=== PATIENT | male | born 1975 | race Caucasian/White ===

== ENCOUNTER 2022-11-04 13:44 | Outpatient (CLI) | payer BC, SELFPAY ==
--- NOTE | 2022-11-04 13:30 | RT.EKG_ITS ---
APPROVED REPORT Exam: Resting ECG Reason for Exam: Chest pain Patient Location: O HR:67 bpm ECG Measurements Heart Rate 67 AXIS NE 190 P -1 QRSd 96 QRS -35 QT 372 T 18 QTc 393 Conclusion Sinus rhythm...normal P axis, V-rate 50- [address] elev, probable normal early repol pattern...ST elevation, age<55 Baseline wander in lead(s) V1
== END 2022-11-04 13:45 | disposition home or self-care (01) ==
LOC: DI.KIM 13:45
PROVIDERS: Visit Provider Family Medicine
DX: R94.31 Abnormal electrocardiogram [ECG] [EKG] (principal); R07.9 Chest pain, unspecified
CPT/HCPCS: 93010

== ENCOUNTER 2022-11-11 02:37 | Outpatient (CLI) | payer BC, SELFPAY ==
[2022-11-11 10:10] LABS: Abs Immature Grans 0.02 10^3/uL (0.0-0.06); Absolute Basophil Count 0.03 10^3/uL (0.0-0.2); Absolute Eosinophil Count 0.17 10^3/uL (0.0-0.7); Absolute Lymphocyte Count 2.57 10^3/uL (1.2-3.4); Absolute Monocyte Count 0.57 10^3/uL (0.1-0.8); Absolute Neutrophil Count 2.47 10^3/uL (1.2-6.7); Basophils % 0.5; Eosinophils % 2.9; HCT 47.1 % (40.0-50.0); HGB 15.5 g/dL (13.5-17.5); Immature Grans % 0.3; Lymphocytes % 44.1; MCH 28.2 pg (27.0-33.0); MCHC 32.9 % (32.0-36.0); MCV 86 fL (80-95); MPV 10.5 fL (8.0-11.0); Monocytes % 9.8; Neutrophils % 42.4; Platelet Count 233 10^3/uL (130-400); RDW 12.8 % (11.8-14.1); RDW-SD 39.8 fL; WBC 5.83 10^3/uL (4.4-10.8)
[2022-11-11 11:19] LABS: ALT 42 U/L (16-63); AST 21 U/L (15-37); Albumin 4.4 g/dL (3.4-5.0); Alkaline Phosphatase 71 U/L (46-116); Anion Gap 7.3 mmol/L (3-11); BUN 11 mg/dL (7-18); Bilirubin, Total 0.6 mg/dL (0.2-1.0); CO2 29.7 mmol/L (21.0-32.0); Calcium 9.2 mg/dL (8.5-10.1); Calculated LDL 143 mg/dL (<100); Chloride 103 mmol/L (98-107); Cholesterol 221 mg/dL (<200); Estimated GFR 92.26 (mL/min/1.73m2); Glucose 107 mg/dL (74-106); HDL Cholesterol 43 mg/dL (40-60); Sodium 140 mmol/L (136-145); Triglyceride 175 mg/dL (<150)
== END 2022-11-11 02:38 | disposition home or self-care (01) ==
PROVIDERS: PCP Family Medicine; Visit Provider Family Medicine
DX: E78.5 Hyperlipidemia, unspecified (principal); R07.89 Other chest pain; Z85.72 Personal history of non-Hodgkin lymphomas
CPT/HCPCS: 36415; 80053; 80061; 85025

== ENCOUNTER 2022-11-26 00:25 | Outpatient (CLI) | payer BC, SELFPAY ==
--- NOTE | 2022-11-26 06:30 | ETT_ITS ---
APPROVED REPORT Exam: Exercise Treadmill Patient Location: Out-Patient Room/Bed: Stress Nurse: Lena Balderas RN Ordering Provider:PRACHI CAPUTO, Contact Number: [phone] BMI: 27.12 Baseline Rhythm: Sinus Rhythm Indications: Chest pain when lying down at night Medical History Medical History: HLD, Non hodgkins lymphoma Cardiac Medications: Rosuvastatin Allergies: NKA Cardiac Risk Factors: +HLD Previous Cardiac Procedures: None Pretest Chest Pain Characteristics: None Exercise History: Physically active Physical Disabilities: None Lung Sounds: Clear Heart Sounds: Regular Stress Test Details Test: Exercise stress testing was performed using a Rolly protocol. Rest Stress HR Resting HR Supine: 66 bpm Max Heart Rate (APMHR): 171 bpm Resting HR Standin bpm Target HR (85% APMHR): 145 bpm Max HR Achieved: 160 bpm % of APMHR: 94 Recovery HR: 84 bpm HR response to stress: Normal HR response to stress BP Resting BP Supine: 122/72 mmHg Resting BP Standin/76 mmHg Max BP: 160/74 mmHg Recovery BP: 128/78 mmHg BP response to stress: Normal blood pressure response to stress. ECG Resting ECG: Sinus Rhythm Ectopy: None Stress ECG: Sinus Tachycardia ST Change: No significant ST segment changes noted Arrhythmia: None Recovery ECG: Sinus Rhythm Recovery ST Change: No significant ST segment changes noted Recovery Arrhythmia: None Clinical Reason for Termination: Target HR Achieved, Artifact making it difficult to interpret 12 lead when pa tient was jogging Stress Symptoms: None Exercise duration: 10 min29 sec Highest Stage Reached: Stage 4: 4.2 mph at 16% grade. Exercise capacity: 12.60 METs Angina Score: None Fry Treadmill Score: 9.2 Rate Pressure Product: [id number] Stress ECG Conclusion 1. Resting electrocardiogram showed poor R wave progression 2. Patient exercised on the Rolly protocol and completed a workload of 12.6 METS 3. Normal heart rate and blood pressure response to exercise. The patient achieved 94% of predicted heart rate for age 4. There was no electrocardiographic evidence of myocardial ischemia 5. There were no significant dysrhythmias Fry Treadmill Score is 9.2 which is Low risk. Stress Test Summary STAGE Time (mins) Speed (mph) Grade (%) HR BP SpO2 SYMPTOMS METS Supine 66 122/72 Standing 74 118/76 1 3 1.7 10 107 128/70 4.5 2 6 2.5 12 121 142/68 7 3 9 3.4 14 135 150/62 10 4 12 4.2 16 156 13 1 min recovery 122 162/68 3 min recovery 88 160/74 6 min recovery 84 128/78 Patient presented to stress lab for exercise treadmill test today. Patient appeared very anxious prio r to test but was able to complete the test without any adverse signs or symptoms. Test was stopped b ecause there was a lot of artifact when patient started jogging during stage 4 and target heart rate was met.
== END 2022-11-26 00:45 ==
LOC: DI 00:26
PROVIDERS: PCP Family Medicine; Visit Provider Family Medicine
DX: R07.9 Chest pain, unspecified (principal)
CPT/HCPCS: 93017

== ENCOUNTER 2023-06-02 16:31 | Outpatient (CLI) | payer BC, SELFPAY ==
[2023-06-02 10:40] LABS: Abs Immature Grans 0.03 10^3/uL (0.0-0.06); Absolute Basophil Count 0.05 10^3/uL (0.0-0.2); Absolute Lymphocyte Count 3.16 10^3/uL (1.2-3.4); Absolute Monocyte Count 0.68 10^3/uL (0.1-0.8); Absolute Neutrophil Count 3.27 10^3/uL (1.2-6.7); Basophils % 0.7; Eosinophils % 6.5; HCT 46.7 % (40.0-50.0); HGB 15.7 g/dL (13.5-17.5); Immature Grans % 0.4; Lymphocytes % 41.1; MCH 28.6 pg (27.0-33.0); MCHC 33.6 % (32.0-36.0); MCV 85 fL (80-95); MPV 10.1 fL (8.0-11.0); Monocytes % 8.8; Neutrophils % 42.5; Platelet Count 220 10^3/uL (130-400); RBC 5.48 10^6/uL (4.36-5.78); RDW 13.1 % (11.8-14.1); RDW-SD 40.8 fL; WBC 7.69 10^3/uL (4.4-10.8)
[2023-06-02 11:21] LABS: Cholesterol 203 mg/dL (<200); HDL Cholesterol 34 mg/dL (40-60); Triglyceride 684 mg/dL (<150)
[2023-06-02 11:32] LABS: LDL CHOLESTEROL 65 mg/dL (<100)
[2023-06-02 11:41] LABS: Uric Acid 7.7 mg/dL (3.5-7.2)
[2023-06-02 17:34] LABS: CRP, High Sensitivity 0.64 mg/L (See Note)
[2023-06-03 12:46] LABS: Lyme Ab w Rflx to Lyme Confirm Negative (Negative)
[2023-06-04 23:05] LABS: Anaplasma phagocytophilum Negative (Negative); B. miyamotoi PCR Negative (Negative); Babesia divergens/MO-1 Negative (Negative); Babesia duncani Negative (Negative); Babesia microti Negative (Negative); Ehrlichia chaffeensis Negative (Negative); Ehrlichia ewingii/canis Negative (Negative); Ehrlichia muris eauclairensis Negative (Negative)
== END 2023-06-02 16:32 | disposition home or self-care (01) ==
LOC: LBO 16:31
PROVIDERS: PCP Family Medicine; Visit Provider Family Medicine
DX: M25.60 Stiffness of unspecified joint, not elsewhere classified (principal); E78.5 Hyperlipidemia, unspecified; M25.40 Effusion, unspecified joint; C85.90 Non-Hodgkin lymphoma, unspecified, unspecified site
CPT/HCPCS: 36415; 80061; 83721; 85652; 86141; 87798; 84550; 85025; 86618

== ENCOUNTER 2023-07-22 02:23 | Outpatient (CLI) | payer BC, SELFPAY ==
[2023-07-22 10:46] LABS: Abs Immature Grans 0.01 10^3/uL (0.0-0.06); Absolute Basophil Count 0.06 10^3/uL (0.0-0.2); Absolute Eosinophil Count 0.44 10^3/uL (0.0-0.7); Absolute Lymphocyte Count 3.14 10^3/uL (1.2-3.4); Absolute Neutrophil Count 2.34 10^3/uL (1.2-6.7); Basophils % 0.9; Eosinophils % 6.7; HCT 45.2 % (40.0-50.0); HGB 15.4 g/dL (13.5-17.5); Immature Grans % 0.2; Lymphocytes % 47.6; MCH 29.1 pg (27.0-33.0); MCHC 34.1 % (32.0-36.0); MCV 85 fL (80-95); MPV 10.8 fL (8.0-11.0); Monocytes % 9.1; Neutrophils % 35.5; Platelet Count 224 10^3/uL (130-400); RDW 13.1 % (11.8-14.1); RDW-SD 40.5 fL; WBC 6.59 10^3/uL (4.4-10.8)
[2023-07-22 10:57] LABS: Calculated LDL 65 mg/dL (<100); Cholesterol 177 mg/dL (<200); HDL Cholesterol 37 mg/dL (40-60); Triglyceride 378 mg/dL (<150)
[2023-07-22 11:39] LABS: LDH 184 U/L (85-227)
== END 2023-07-22 02:24 | disposition home or self-care (01) ==
LOC: LBO 02:23
PROVIDERS: PCP Family Medicine; Referring Provider Family Medicine; Visit Provider Family Medicine
DX: E78.5 Hyperlipidemia, unspecified (principal); Z85.72 Personal history of non-Hodgkin lymphomas
CPT/HCPCS: 36415; 80061; 83615; 85025

== ENCOUNTER → 2023-08-04 00:37 | Outpatient (CLI) | payer BC, SELFPAY ==
[2023-08-04 07:33] LABS: CREATININE 0.9 mg/dL (0.70-1.30); Estimated GFR 104.05 (mL/min/1.73m2)
[2023-08-04] MEDS: Normal Saline - Diluent 50 ML VIAL IJ (09:44)
[2023-08-04] MEDS: Omnipaque 350 MG/ML 500 ML BTL-Imaging package 100 ML IJ (09:45)
--- NOTE | 2023-08-04 09:45 | DI.CT_ITS ---
Exam(s) CT ABDOMEN PELVIS W EXAM: CT ABDOMEN PELVIS W CLINICAL HISTORY: Groin pain,night sweats,history of lymphoma,r10.32 TECHNIQUE: Imaging Protocol: Axial computed tomography images with coronal and sagittal reformatted images were created and reviewed CONTRAST MATERIAL: Intravenous: Omnipaque 350 Contrast volume:100 mL Oral: Yes COMPARISON: No exams were available for comparison FINDINGS: ABDOMEN: Lung Bases: There is a 4 mm nodule in the lateral aspect of the right lower lobe. (Series 5, image 1 ). There is a 3 mm peripheral nodule in the left lower lobe. (Series 5, image 25). Liver: Normal density. No measurable mass. Portal, Superior Mesenteric, and Splenic Veins: Unremarkable. Gallbladder and Biliary Tract: No radiodense calculus or dilation. Pancreas: Normal density, no abnormal calcifications or inflammatory process. Spleen: Normal. Adrenals: No masses seen. Kidneys: Normal size, contour and axis. No radiodense stones or obstructive uropathy. No masses seen. Abdominal Aorta: Abdominal portion non-dilated. Mild atherosclerosis. Bowel: No obstruction or bowel wall thickening. No evidence of appendicitis. Peritoneal Cavity: No ascites, collection or mesenteric inflammatory response. No free air. Lymph Nodes: Within normal limits. Bones: Within normal limits for the patient's age. There is a sclerotic focus seen in the right randee c bone measuring 1.8 cm. No cortical disruption or soft tissue mass is associated with the lesion. Soft Tissues: No evidence of an inguinal mass, adenopathy or hernia. PELVIS: Bladder: Symmetric distention, no gross wall thickening. Reproductive Organs: Mildly enlarged prostate gland. Lymph Nodes: Within normal limits. Bones: Within normal limits for the patient's age. IMPRESSION: 1. No evidence of an inguinal mass, adenopathy or hernia. 2. No evidence of nephrolithiasis or hydronephrosis. 3. Right iliac sclerotic focus measuring 1.8 cm. A bone scan should be considered for further evaluat ion. Depending on those results, an MRI may be considered. 4. Pulmonary nodules. In low risk patients, no follow-up is indicated. In high risk patients (history of smoking or other risk factors), a CT scan in 12 months may be warranted. (Agusto et al, 2017). Unexpected findings RADIATION DOSE DELIVERED: Total DLP DATA REPOSITORY: All CT scans at this facility are submitted to the National Radiology Data Registry (NRDR) Dose Index Registry (DIR) with the [employer] ([employer]). RADIATION OPTIMIZATION: All CT scans at this facility use at least one of these dose optimization te chniques: automated exposure control; mA and/or kV adjustment per patient size (includes targeted exa ms where dose is matched to clinical indication); or iterative reconstruction.
[2023-08-04] MEDS: Barium Sulfate 2% W/V-Berry Smoothie 450 ML BTL 900 ML PO (09:46)
== END ==
PROVIDERS: PCP Family Medicine; Visit Provider Family Medicine
DX: M10.9 Gout, unspecified (principal); R91.1 Solitary pulmonary nodule; R10.32 Left lower quadrant pain; M89.28 Other disorders of bone development and growth, other site
CPT/HCPCS: 74177; 82565

== ENCOUNTER → 2023-08-20 02:01 | Outpatient (CLI) | payer BC, SELFPAY ==
--- NOTE | 2023-08-20 07:30 | DI.NM_ITS ---
Exam(s) NM BONE SCAN WHOLE BODY GRP EXAM: NM BONE SCAN WHOLE BODY GRP CLINICAL HISTORY: h/o lymphoma,lesion rt pelvis,C85.90. TECHNIQUE: Injected Dose: 25 mCi Tc-99m MDP Delayed Images: 2-3 hours. COMPARISON: CT CT ABDOMEN PELVIS W from 08/04/2023 FINDINGS: Symmetric axial uptake. Bilateral renal excretion is identified. Thinly increased activity in the lower right ilium which may correspond to the lesion seen on CT. No additional abnormal foci in the skeletal. IMPRESSION: Mildly increased activity associated with the lesion in the inferomedial right ilium. If there are n o prior comparison CT examinations, MRI could be considered. DATA REPOSITORY:
== END ==
PROVIDERS: PCP Family Medicine; Visit Provider Family Medicine
DX: C85.90 Non-Hodgkin lymphoma, unspecified, unspecified site (principal); R93.7 Abnormal findings on diagnostic imaging of other parts of musculoskeletal system
CPT/HCPCS: 78306

== ENCOUNTER 2023-12-12 12:33 | Outpatient (CLI) | payer BC, SELFPAY ==
[2023-12-12 11:42] LABS: ESR 3 mm/hr (0-15)
[2023-12-12 11:59] LABS: C-Reactive Protein < 0.50 mg/dL (<or=0.5)
== END 2023-12-12 12:34 | disposition home or self-care (01) ==
PROVIDERS: PCP Family Medicine; Visit Provider Family Medicine
DX: M25.69 Stiffness of other specified joint, not elsewhere classified (principal)
CPT/HCPCS: 36415; 85652; 86140

== ENCOUNTER 2024-03-15 13:29 | Outpatient (CLI) | payer BC, SELFPAY ==
[2024-03-15 13:02] LABS: Abs Immature Grans 0.03 10^3/uL (0.0-0.06); Absolute Basophil Count 0.04 10^3/uL (0.0-0.2); Absolute Eosinophil Count 0.38 10^3/uL (0.0-0.7); Absolute Lymphocyte Count 2.72 10^3/uL (1.2-3.4); Absolute Monocyte Count 0.61 10^3/uL (0.1-0.8); Absolute Neutrophil Count 4.24 10^3/uL (1.2-6.7); Basophils % 0.5 %; ESR 9 mm/hr (0-15); Eosinophils % 4.7 %; HCT 46.1 % (40.0-50.0); HGB 15.9 g/dL (13.5-17.5); Immature Grans % 0.4 %; Lymphocytes % 33.9 %; MCH 28.8 pg (27.0-33.0); MCHC 34.5 % (32.0-36.0); MCV 83 fL (80-95); MPV 10.3 fL (8.0-11.0); Monocytes % 7.6 %; Neutrophils % 52.9 %; Platelet Count 241 10^3/uL (130-400); RBC 5.53 10^6/uL (4.36-5.78); RDW 13.1 % (11.8-14.1); RDW-SD 39.8 fL; WBC 8.02 10^3/uL (4.4-10.8)
[2024-03-15 13:58] LABS: Cholesterol 231 mg/dL (<200); HDL Cholesterol 38 mg/dL (40-60); Triglyceride 731 mg/dL (<150)
[2024-03-15 14:10] LABS: LDL CHOLESTEROL 74 mg/dL (<100)
[2024-03-15 14:24] LABS: C-Reactive Protein < 0.50 mg/dL (<or=0.5)
== END 2024-03-15 13:30 | disposition home or self-care (01) ==
LOC: LBO 13:29
PROVIDERS: PCP Family Medicine; Visit Provider Family Medicine
DX: E78.5 Hyperlipidemia, unspecified (principal); H57.10 Ocular pain, unspecified eye
CPT/HCPCS: 36415; 80061; 83721; 85652; 85025; 86140

== ENCOUNTER 2024-05-27 03:06 | Outpatient (CLI) | payer BC, SELFPAY ==
[2024-05-27 12:10] LABS: ALT 42 U/L (16-63); AST < 5 U/L (15-37); Alkaline Phosphatase 66 U/L (46-116); Anion Gap 7.7 mmol/L (3-11); BUN 13 mg/dL (7-18); Bilirubin, Total 0.56 mg/dL (0.2-1.0); CO2 29.3 mmol/L (21.0-32.0); CREATININE 1.1 mg/dL (0.70-1.30); Calcium 8.8 mg/dL (8.5-10.1); Chloride 104 mmol/L (98-107); Estimated GFR 81.28 (mL/min/1.73m2); Glucose 103 mg/dL (74-106); Potassium 4.3 mmol/L (3.5-5.1); Sodium 141 mmol/L (136-145)
== END 2024-05-27 03:07 | disposition home or self-care (01) ==
LOC: LBO 03:06
PROVIDERS: PCP Family Medicine; Visit Provider Family Medicine
DX: E78.5 Hyperlipidemia, unspecified (principal)
CPT/HCPCS: 36415; 80053

== ENCOUNTER 2024-10-21 12:01 | Outpatient (CLI) | payer BC, SELFPAY ==
--- NOTE | 2024-10-21 11:45 | DI.RAD_ITS ---
Exam(s) XR CHEST 2V PA LATERAL EXAM: XR CHEST 2V PA LATERAL CLINICAL HISTORY: URI sypmtoms, rhonchi R LL, cough, R05.9. TECHNIQUE: 2D digital imaging was performed. COMPARISON: No exams were available for comparison FINDINGS: 2 views: Heart size is normal. The mediastinum is not widened. Lungs are clear. No infiltrates nor pleural effusions. IMPRESSION: No acute pulmonary findings. DATA REPOSITORY: RADIATION DOSE DELIVERED:
== END 2024-10-21 12:21 ==
PROVIDERS: PCP Family Medicine; Visit Provider Family Medicine
DX: R05.9 Cough, unspecified (principal)
CPT/HCPCS: 71046

== ENCOUNTER 2024-11-29 02:59 | Outpatient (CLI) | payer BC, SELFPAY ==
[2024-11-29 10:33] LABS: HCT 46.5 % (40.0-50.0); HGB 15.4 g/dL (13.5-17.5); MCH 28.5 pg (27.0-33.0); MCHC 33.1 % (32.0-36.0); MCV 86 fL (80-95); MPV 10.7 fL (8.0-11.0); Platelet Count 195 10^3/uL (130-400); RBC 5.41 10^6/uL (4.36-5.78); WBC 6.91 10^3/uL (4.4-10.8)
[2024-11-29 11:07] LABS: Cholesterol 257 mg/dL (<200); HDL Cholesterol 33 mg/dL (>or=40)
[2024-11-29 11:12] LABS: Triglyceride 1124 mg/dL (<150)
[2024-11-29 11:24] LABS: LDL CHOLESTEROL 70 mg/dL (<100)
[2024-11-30 09:23] LABS: Measles IgG Antibody Positive (See Note)
== END 2024-11-29 03:00 | disposition home or self-care (01) ==
LOC: LBO 02:59
PROVIDERS: PCP Family Medicine; Referring Provider Family Medicine; Visit Provider Family Medicine
DX: J06.9 Acute upper respiratory infection, unspecified (principal); Z78.9 Other specified health status; E78.5 Hyperlipidemia, unspecified
CPT/HCPCS: 36415; 80061; 83721; 85027; 86765